=== PATIENT | female | born 1980 | race Asian ===

== ENCOUNTER 2017-12-24 20:48 | Emergency (ER) | payer BC ==
[~2017-12-24] VITALS: Ht 160 cm; Wt 65.9 kg
[2017-12-24 21:09] VITALS: Ht 160 cm; Wt 65.9 kg
[2017-12-24 21:37] VITALS: BP 129/95
== END 2017-12-24 21:37 | disposition home or self-care (01) ==
LOC: ED 20:48
DX: J06.9 Acute upper respiratory infection, unspecified (principal); J40 Bronchitis, not specified as acute or chronic; E03.9 Hypothyroidism, unspecified